=== PATIENT | female | born 1985 | race Caucasian/White ===

== ENCOUNTER 2023-03-15 09:00 | Emergency (ER) | payer OTHER ==
[2023-03-15 09:09] VITALS: BP 150/78; PULSE 96; RESP 18; TEMP 99.1; BMI 23.9
[2023-03-15 10:31] LABS: BASO % 0.7 % (0-2.0); EOS % 2.3 % (0-4.5); HEMATOCRIT 37.7 % (32.4-45.2); HEMOGLOBIN 12.3 GM/dL (10.7-15.3); LYMPH % 15.6 % (8-40); MCHC 32.5 g/dl (32.0-36.0); MEAN CELL VOLUME 83.2 fl (80-96); MEAN PLT VOLUME 8.8 fl (7.5-11.1); MONO % 9.5 % (3.8-10.2); NEUT % 71.9 % (42.8-82.8); PLATELET COUNT 272 10^3/uL (134-434); RBC 4.53 M/mm3 (3.60-5.2); RDW 13.2 % (11.6-15.6); WHITE BLOOD COUNT 6.1 K/mm3 (4.0-10.0)
[2023-03-15 10:46] LABS: POTASSIUM 4.6 mmol/L (3.5-5.1)
[2023-03-15 10:49] LABS: ALBUMIN 3.6 g/dl (3.4-5.0); BLOOD UREA NITROGEN 17.5 mg/dL (7-18)
[2023-03-15 10:52] LABS: BILIRUBIN,DIRECT 0.1 mg/dL (0.0-0.2); CREATININE 0.6 mg/dL (0.55-1.3); URIC ACID 2.8 mg/dL (2.6-7.2)
[2023-03-15 10:54] LABS: BILIRUBIN,TOTAL 0.3 mg/dL (0.2-1); TOT PROT 6.9 g/dl (6.4-8.2)
[2023-03-15 11:13] LABS: ERYTHROCYTE SEDIMENTATION RATE 11 mm/hr (0-20)
== END 2023-03-15 14:38 | disposition home or self-care (01) ==
LOC: JERFT 09:00
DX: M79.672 Pain in left foot (principal)
CPT/HCPCS: 36415; 73701-TC-RT; 80048; 80076; 84550; 84703; 85025; 85651; 86140; 99285-25; Q9967

== ENCOUNTER 2023-12-27 10:08 | Observation (INO) | payer OTHER, BC ==
[2023-12-27 10:18] VITALS: BMI 23.9
[2023-12-27 11:15] LABS: VENOUS BASE EXCESS 0.1 mmol/L (-2-2); VENOUS O2 SATURATION 69.8 % (70-80); VENOUS PCO2 47.2 mmHg (38-52); VENOUS PH 7.359 (7.310-7.410)
[2023-12-27 11:19] LABS: BASO % 0.3 % (0-2.0); EOS % 0.6 % (0-4.5); HEMATOCRIT 38.9 % (32.4-45.2); HEMOGLOBIN 12.4 GM/dL (10.7-15.3); LYMPH % 9.7 % (8-40); MCH 27.6 pg (25.7-33.7); MCHC 31.9 g/dl (32.0-36.0); MEAN CELL VOLUME 86.4 fl (80-96); MEAN PLT VOLUME 9.8 fl (7.5-11.1); MONO % 6.8 % (3.8-10.2); NEUT % 82.6 % (42.8-82.8); PLATELET COUNT 232 10^3/uL (134-434); RBC 4.51 M/mm3 (3.60-5.2); RDW 14.1 % (11.6-15.6); WHITE BLOOD COUNT 8.6 K/mm3 (4.0-10.0)
[2023-12-27 11:26] LABS: INR 1.08 (0.83-1.09); PROTHROMBIN TIME (PATIENT) 12.5 SEC (9.7-13.0)
[2023-12-27 11:29] LABS: ACTIVATED PTT 30.2 SECONDS (25.2-36.5)
[2023-12-27 11:30] LABS: CHLORIDE 107 mmol/L (98-107); POTASSIUM 4.1 mmol/L (3.5-5.1); SODIUM 138 mmol/L (136-145)
[2023-12-27 11:32] LABS: CALCIUM 9.3 mg/dL (8.5-10.1)
[2023-12-27 11:33] LABS: ALBUMIN 3.8 g/dl (3.4-5.0); ANION GAP 3 mmol/L (4-13); BLOOD UREA NITROGEN 13.5 mg/dL (7-18); CO2 28 mmol/L (21-32); GLUCOSE,RANDOM 95 mg/dL (74-106); MAGNESIUM 1.8 mg/dL (1.8-2.4)
[2023-12-27 11:36] LABS: CREATININE 0.6 mg/dL (0.55-1.3); SGOT/AST 21 U/L (15-37); SGPT/ALT 26 U/L (13-61)
[2023-12-27 11:38] LABS: BILIRUBIN,TOTAL 0.4 mg/dL (0.2-1); TOT PROT 6.7 g/dl (6.4-8.2)
[2023-12-27 11:39] LABS: ALK PHOS 60 U/L (45-117)
[2023-12-27] MEDS: SODIUM CHLORIDE 0.9% 500 ML INFUS.BAG IV ONE (11:50)
[2023-12-27 11:52] LABS: PH,URINE 5.5 (5.0-8.0); URINE APPEARANCE CLEAR; URINE BILIRUBIN NEGATIVE (NEGATIVE); URINE COLOR YELLOW; URINE GLUCOSE (UA) NEGATIVE (NEGATIVE); URINE KETONE NEGATIVE (NEGATIVE); URINE LEUK ESTERASE NEGATIVE (NEGATIVE); URINE NITRITE NEGATIVE (NEGATIVE); URINE PROTEIN NEGATIVE (NEGATIVE); URINE UROBILINOGEN 0.2 mg/dL (0.2-1.0)
[2023-12-27 12:00] LABS: COCAINE, UR NEGATIVE (NEGATIVE); OPIATES, URI NEGATIVE (NEGATIVE); URINE BENZODIAZEPINES NEGATIVE (NEGATIVE)
[2023-12-27 12:01] LABS: URINE BARBITURATES NEGATIVE (NEGATIVE)
[2023-12-27 12:02] LABS: METHADONE, UR NEGATIVE (NEGATIVE); PHENCYCLIDINE,URINE NEGATIVE (NEGATIVE); URINE AMPHETAMINES NEGATIVE (NEGATIVE)
[2023-12-27] MEDS ORDERED: PANTOPRAZOLE SODIUM 40 MG/100 ML BAG IVPB ONE (14:24)
[2023-12-27] MEDS ORDERED: LACTATED RINGERS SOLUTION 1,000 ML/1,000 ML INFUS.BAG IV SCH (14:30)
[2023-12-27] MEDS: PANTOPRAZOLE SODIUM 40 MG VIAL IVPUSH ONE (14:40)
[2023-12-27] MEDS ORDERED: ACETAMINOPHEN INJECTION 100 ML IVPB ONE (14:41)
[2023-12-27] MEDS: ACETAMINOPHEN 1000 MG/100 ML BAG IVPB ONE (14:44)
[2023-12-27] MEDS: DEXTROSE 5%-LACTATED RINGERS 1,000 ML IV SCH (15:33)
[2023-12-27] MEDS ORDERED: ONDANSETRON 4 MG/2 ML VIAL IVPUSH PRN (15:59)
[2023-12-27] MEDS ORDERED: LACTATED RINGERS SOLUTION 1,000 ML IV SCH (16:00)
[2023-12-27 17:13] VITALS: RESP 18
[2023-12-27] MEDS: traZODone HCL 50 MG TABLET (FP) PO SCH (21:30)
[2023-12-28] MEDS: ESCITALOPRAM OXALATE 10 MG TABLET PO SCH (09:22)
[2023-12-28] MEDS: PANTOPRAZOLE 40 MG TABLET PO SCH (09:22)
[2023-12-28 13:26] LABS: BASO % 0.2 % (0-2.0); EOS % 0.1 % (0-4.5); HEMATOCRIT 39.1 % (32.4-45.2); HEMOGLOBIN 12.9 GM/dL (10.7-15.3); LYMPH % 6.7 % (8-40); MCHC 32.9 g/dl (32.0-36.0); MEAN CELL VOLUME 85.2 fl (80-96); MEAN PLT VOLUME 9.8 fl (7.5-11.1); MONO % 4.6 % (3.8-10.2); NEUT % 88.4 % (42.8-82.8); PLATELET COUNT 252 10^3/uL (134-434); RBC 4.59 M/mm3 (3.60-5.2); RDW 14.5 % (11.6-15.6)
[2023-12-28 13:49] LABS: POTASSIUM 3.6 mmol/L (3.5-5.1)
[2023-12-28 13:51] LABS: BLOOD UREA NITROGEN 6.9 mg/dL (7-18); CALCIUM 9.5 mg/dL (8.5-10.1)
[2023-12-28 13:55] LABS: CREATININE 0.6 mg/dL (0.55-1.3)
[2023-12-28 13:56] LABS: BILIRUBIN,TOTAL 0.6 mg/dL (0.2-1)
[2023-12-28 16:46] VITALS: BP 130/67; PULSE 79; TEMP 98.1
== END 2023-12-28 16:51 | disposition home or self-care (01) ==
LOC: JER 10:08 → JERBED 13:36 → J5S 17:01
PROVIDERS: ADMIT Internal Medicine
PROC: 3E033GC Introduction of Other Therapeutic Substance into Peripheral Vein, Percutaneous Approach (ICD-10-PCS; 2023-12-27)
PROC: 3E0337Z Introduction of Electrolytic and Water Balance Substance into Peripheral Vein, Percutaneous Approach (ICD-10-PCS; 2023-12-27)
PROC: 0DJ08ZZ Inspection of Upper Intestinal Tract, Via Natural or Artificial Opening Endoscopic (ICD-10-PCS; 2023-12-27)
PROC: 3E033NZ Introduction of Analgesics, Hypnotics, Sedatives into Peripheral Vein, Percutaneous Approach (ICD-10-PCS; principal; 2023-12-27 15:00)
DX: K29.00 Acute gastritis without bleeding (principal); T54.91XA Toxic effect of unspecified corrosive substance, accidental (unintentional), initial encounter; J45.909 Unspecified asthma, uncomplicated; F41.8 Other specified anxiety disorders; Z88.0 Allergy status to penicillin; Y92.009 Unspecified place in unspecified non-institutional (private) residence as the place of occurrence of the external cause
CPT/HCPCS: 36415; 71046-TC-FY; 80053; 80307; 81003; 82803; 83605; 83690; 83735; 84443; 84703; 85025; 85610; 85730; 86850; 86900; 86901; 93005; 93010; 94760; 99285-25; G0378; J0131